=== PATIENT | male | born 1960 | race Caucasian/White ===

== ENCOUNTER 2016-10-22 05:39 | Outpatient (CLI) | payer OTHER ==
[~2016-10-22] VITALS: Ht 170.2 cm; Wt 115.7 kg
[~2016-10-22 05:39] MED LIST: OXYC-12 PO
[2016-11-05] MEDS ORDERED: HYDR-3812 PO (11:56)
== END 2016-10-22 16:28 ==
LOC: PREOP 05:39
PROVIDERS: ATTEND Surgery
DX: Z01.818 Encounter for other preprocedural examination (principal); Z12.11 Encounter for screening for malignant neoplasm of colon; Z83.71 Family history of colonic polyps

== ENCOUNTER 2016-10-26 10:54 | Day surgery (SDC) | payer OTHER ==
[~2016-10-26] VITALS: Ht 170.2 cm; Wt 115.7 kg
[2016-10-26] MEDS ORDERED: NS IV 500 ML 500 ML IV STA (11:07)
[2016-10-26] MEDS ORDERED: NS IV 500 ML 500 ML ONE (11:11)
[2016-10-26] MEDS ORDERED: NALOXONE 0.4 MG/ML 1 ML (NARCAN) VIAL IVP PRN (11:15)
[2016-10-26] MEDS ORDERED: FLUMAZENIL (ROMAZICON) 0.1 MG/ML 5 ML VIAL INJ PRN (11:15)
[2016-10-26 11:40] VITALS: BP 138/88
[2016-10-26] MEDS ORDERED: fentaNYL INJECTION 100 MCG/2 ML AMP ONE ×2 (12:34)
[2016-10-26] MEDS ORDERED: MIDAZOLAM 2 MG/2 ML (VERSED) VIAL ONE ×5 (12:34→12:50)
--- NOTE | 2016-10-26 12:38 | Conscious Sedation/ASA ---
Conscious Sedation Pre-Proced Time Reviewed: 12:37 ASA Class: 2 Airway Mallampati Classification: (lower [place] appropriate class) I. II. III, IV Lungs Heart ASA score ASA 1: a normal healthy patient ASA 2: a patient with a mild systemic disease (mid diabetes, controlled hypertension, obesity ASA 3: a patient with a severe systemic disease that limits activity (angina , COPD, prior Myocardial infarction) ASA 4: a patient with an incapacitating disease that is a constant threat to life (CHF, renal failure) ASA 5: a moribund patient not expected to survive 24 hrs. (ruptured aneurysm) ASA 6: a declared brain patient whose organs are being harvested. For emergent operations, add the letter E after the classification Grade 1 Sedation Plan: Discussed options with patient/fam Note The patient is an appropriate candidate to undergo the planned procedure, sedation, and anesthesia. The patient immediately re-assessed prior to indication. SONIA FUCHS MD Oct 26, 2016 12:38 pm
[2016-10-26] MEDS: fentaNYL INJECTION 100 MCG/2 ML AMP IVP PRN ×2 (12:47→12:49)
[2016-10-26] MEDS: MIDAZOLAM 2 MG/2 ML (VERSED) VIAL IVP PRN ×3 (12:48→12:52)
--- NOTE | 2016-10-26 13:06 | Endoscopy Procedure Report ---
Endoscopy Report Date: Oct 26, 2016 Preoperative Diagnosis: personal and family history of polyps Study Performed: Colonoscopy Procedure Instrument: Colonoscope Endo Procedure/Findings Findings 1.: Polyp, Diverticulosis Copy Copies To 1: MEAGAN WEN MD, XAVIER M MD Oct 26, 2016 1:05 pm
--- NOTE | 2016-10-26 13:08 | Discharge Inst-Simple/Standard ---
Discharge Inst-Standard Discharge Medications New, Converted or Re-Newed RX: Other Patient Instructions/Follow Up Plan of Care/Instructions/FU: repeat colonoscopy in 2 years Activity as Tolerated: Yes Discharge Diet: No Restrictions SONIA FUCHS MD Oct 26, 2016 1:08 pm
[2016-10-26 13:35] VITALS: BP 133/76
[2016-10-26 14:05] VITALS: BP 137/89
[2016-10-26 14:15] VITALS: BP 137/89
--- NOTE | 2016-10-27 09:00 | PROCEDURE REPORT ---
PROCEDURE PHYSICIAN: SONIA FUCHS DATE OF PROCEDURE: 10/26/2016 PROCEDURE: 1. Screening colonoscopy. 2. Snare polypectomy. SURGEON: Dr. Fuchs. INDICATION FOR THE PROCEDURE: This gentleman came in for screening colonoscopy. He has a personal and family history of polyps. Informed consent was obtained after reviewing the procedure in detail. DESCRIPTION OF THE PROCEDURE: He was placed in left lateral decubitus position and his vital signs were monitored. Conscious sedation was achieved using versed and fentanyl. Digital rectal examination was unremarkable. The colonoscope was then introduced into the rectum and advanced all the way up to the cecum. The scope was then withdrawn slowly and the mucosa examined in a systematic fashion. FINDINGS: 1. Sigmoid diverticulosis. 2. 3 mm polyp at the cecum that was snared and retrieved. He tolerated the procedure well and was taken back to the nursing area in a stable condition. IMPRESSION: 1. Previous history of polyps. 2. Cecal polyp, excised. 3. Recommend repeating in 2 years. Job ID: [id number] Dictated Date: 10/26/2016 13:05:30 Copyman Date: 10/27/2016 08:53:52 / roman MCFADDEN
[2016-11-05] MEDS ORDERED: HYDR-3812 PO (11:56)
== END 2016-10-26 14:15 | disposition home or self-care (01) ==
LOC: ENDO 10:54
PROVIDERS: ATTEND Surgery
DX: Z12.11 Encounter for screening for malignant neoplasm of colon (principal); K63.5 Polyp of colon; K57.90 Diverticulosis of intestine, part unspecified, without perforation or abscess without bleeding; Z83.71 Family history of colonic polyps
CPT/HCPCS: 88305

== ENCOUNTER → 2016-10-29 | Outpatient (CLI) | payer OTHER ==
[~2016-10-29] MED LIST changes: +BARIUM SUSPENSION 2.1% (VANILLA SILQ) 450 ML PO ONE; +CATHETER FLUSH 10 ML SYR IV PRN; +HYDR-3812 PO; +IOHEXOL 350 MG/ML 100 ML (OMNIPAQUE 350) VIAL IV ONE; +NS 100 ML (IVPB) BAG IV ONE
--- NOTE | 2016-10-29 13:54 | Diagnostic Imaging Report ---
PROCEDURE: CT abdomen and pelvis with contrast. TECHNIQUE: Multiple contiguous axial images were obtained through the abdomen and pelvis after administration of intravenous contrast. INDICATION: Left lower quadrant pain. 100 mL of Omnipaque 350 is administered intravenously. COMPARISON: 11/21/13. FINDINGS: The lung bases demonstrate minimal atelectasis. The liver, the gallbladder, the spleen, the adrenals, and the pancreas appear unremarkable. The kidneys have symmetric enhancement and contrast excretion. There is no bowel obstruction. The appendix is normal. Scattered few diverticula are seen in the sigmoid colon and distal descending colon with no diverticulitis. There is evidence of prior ventral hernia repair with a mesh. There is mild diastasis of the recti. No evidence of hernia recurrence. There is, however, a small fat-containing left spigelian hernia with 1 cm size of the defect. This is located 10 cm to the left of the midline, and about 7 cm below the umbilicus level. There is a prominent amount of fat density seen in the left inguinal canal which could be related to some herniating fat or lipomatosis in the left inguinal canal. Correlate clinically. Nonspecific ossifications are seen in the prostate with no significant enlargement. The osseous structures demonstrate mild degenerative changes in the lumbar spine and SI joints. IMPRESSION: 1. Small fat-containing left spigelian hernia at 7 cm below the umbilicus and 10 cm to the left of the midline. 2. Prominent amount of fat in the left inguinal canal may relate to lipomatosis, or less likely a small fat-containing indirect left inguinal hernia. 3. Status post ventral hernia repair with a mesh, without recurrence. Dictated by: Dictated on workstation # [id number]
== END ==
LOC: RAD 12:15
PROVIDERS: ATTEND Surgery
DX: K43.9 Ventral hernia without obstruction or gangrene (principal)
CPT/HCPCS: 74177

== ENCOUNTER 2016-11-03 08:39 | Outpatient (CLI) | payer OTHER ==
[~2016-11-03] VITALS: Ht 170.2 cm; Wt 115.7 kg
[~2016-11-03 08:39] MED LIST changes: -BARIUM SUSPENSION 2.1% (VANILLA SILQ) 450 ML PO ONE; -CATHETER FLUSH 10 ML SYR IV PRN; -HYDR-3812 PO; -IOHEXOL 350 MG/ML 100 ML (OMNIPAQUE 350) VIAL IV ONE; -NS 100 ML (IVPB) BAG IV ONE
== END 2016-11-03 09:01 ==
LOC: PREOP 08:39
PROVIDERS: ATTEND Surgery
DX: Z01.818 Encounter for other preprocedural examination (principal); K43.9 Ventral hernia without obstruction or gangrene

== ENCOUNTER 2016-11-04 10:18 | Day surgery (SDC) | payer OTHER ==
[2016-11-03] MEDS: morphine INJ 10 MG/ML 1ML (SYR OR VIAL) IVP PRN (15:30)
[~2016-11-04] VITALS: Ht 170.2 cm; Wt 115.7 kg
[2016-11-04] MEDS ORDERED: ceFAZolin 2 GM/50 ML NS 50 ML IV ONE (10:30)
[2016-11-04] MEDS ORDERED: ROCURONIUM 50 MG/5 ML (ZEMURON) VIAL IV ONE ×3 (10:48→14:38)
[2016-11-04] MEDS ORDERED: LIDOCAINE PF 2% 10 ML (XYLOCAINE) AMP ONE (10:48)
[2016-11-04] MEDS ORDERED: DEXAMETHASONE PF 10 MG/ML (DECADRON) VIAL ONE (10:48)
[2016-11-04] MEDS ORDERED: MIDAZOLAM 2 MG/2 ML (VERSED) VIAL ONE (10:48)
[2016-11-04] MEDS ORDERED: fentaNYL INJECTION 250 MCG/5 ML AMP ONE (10:48)
[2016-11-04] MEDS ORDERED: SEVOFLURANE (ULTANE) 15 ML INHAL SOLN ONE ×5 (10:48→14:38)
[2016-11-04] MEDS ORDERED: ONDANSETRON 4 MG/2 ML (SDV) Z0FRAN ONE (10:48)
[2016-11-04] MEDS ORDERED: proPOfol 200 MG/20 ML (DIPRIVAN) VIAL IV ONE (10:48)
[2016-11-04] MEDS: LACTATED RINGERS 1,000 ML IV PRN ×2 (10:58→13:11)
[2016-11-04 11:00] VITALS: BP 147/95
[2016-11-04] MEDS ORDERED: BUP/EPI 0.25% 1:200,000 (MARCAINE) 30 ML VIAL ONE (11:00)
[2016-11-04] MEDS ORDERED: CATHETER FLUSH 10 ML SYR IV PRN (11:00)
[2016-11-04] MEDS ORDERED: ceFAZolin 2 GM/NS 50 ML IV ONE (11:00)
--- NOTE | 2016-11-04 12:18 | Progress Note-Pre Operative ---
Pre-Operative Progress Note H&P Reviewed The H&P was reviewed, patient examined and no changes noted. Date H&P Reviewed: Nov 04, 2016 Time H&P Reviewed: 12:18 Pre-Operative Diagnosis: LEFT sPIGELIAN HERNIA SONIA FUCHS MD Nov 04, 2016 12:18 pm
[2016-11-04] MEDS ORDERED: LACTATED RINGERS 0 ML IV ONE (13:10)
[2016-11-04] MEDS ORDERED: morphine INJ 10 MG/ML 1ML (SYR OR VIAL) ONE (13:26)
[2016-11-04] MEDS ORDERED: GLYCOPYRROLATE 0.2 MG/ML (ROBINUL) 2 ML VIAL ONE ×2 (14:37→14:54)
[2016-11-04] MEDS ORDERED: NEOSTIGMINE (BLOXIVERZ ) 1 MG/1ML 10 ML VIAL ONE (14:37)
[2016-11-04] MEDS ORDERED: LACTATED RINGERS 1,000 ML IV ONE ×2 (14:38→14:54)
[2016-11-04] MEDS ORDERED: ONDANSETRON 4 MG/2 ML (SDV) Z0FRAN IVP PRN (15:00)
[2016-11-04] MEDS ORDERED: MEPERIDINE (DEMEROL) INJ 50 MG/ML IVP PRN (15:00)
[2016-11-04] MEDS: morphine INJ 10 MG/ML 1ML (SYR OR VIAL) IVP PRN ×2 (15:25→15:30)
--- NOTE | 2016-11-04 15:54 | Progress Note-Post Operative ---
Post-Operative Progess Note Surgeon (s)/Starch Dumper (s) Surgeon SONIA FUCHS MD Starch Dumper: Silva Griffin Pre-Operative Diagnosis LEFT sPIGELIAN HERNIA Post-Operative Diagnosis Same Post-Op Procedure Note Date of Procedure: Nov 04, 2016 Name of Procedure Performed: Robotic assisted repair with random reclosure Description of the Procedure: See operative report Findings of the Procedure See operative report Anesthesia Type Gen. Estimated blood loss (mL): 50 mL Specimen(s) collected/removed None SONIA FUCHS MD Nov 04, 2016 3:54 pm
[2016-11-04] MEDS ORDERED: PREGABALIN 75 MG (LYRICA) CAP PO ONE (16:00)
[2016-11-04] MEDS ORDERED: ACETAMINOPHEN 500 MG TAB (TYLENOL) PO ONE (16:00)
[2016-11-04] MEDS ORDERED: oxyCODONE ER 10 MG (OxyCONTIN CR) TAB PO ONE (16:00)
[2016-11-04] MEDS ORDERED: CELECOXIB 100 MG (CeleBREX) CAP PO ONE (16:00)
[2016-11-04 16:05] VITALS: BP 157/95
--- NOTE | 2016-11-04 16:51 | OPERATIVE REPORT ---
DATE OF SERVICE: 11/04/2016 DATE OF PROCEDURE: 11/04/2016 PREOPERATIVE DIAGNOSIS: Left spigelian hernia. POSTOPERATIVE DIAGNOSIS: Left spigelian hernia. OPERATION PERFORMED: Robotic assisted repair of left Spigelian hernia without mesh. SURGEON: Sonia Fuchs MD ANESTHESIA: General anesthesia. ESTIMATED BLOOD LOSS: 50 mL. FLUIDS: 2 liters of crystalloid. TYPE OF WOUND: Type I (plain wound). INDICATION FOR PROCEDURE: This gentleman presented with a symptomatic left Spigelian hernia. He was offered minimally invasive repair with robotic assistance. Informed consent was obtained after reviewing the procedure in detail. DESCRIPTION OF PROCEDURE: He was placed supine on the operating room table and general anesthesia induced using an endotracheal tube. Two grams of Ancef were administered intravenously as prophylaxis against a wound infection. Sequential compression devices were placed around his legs to minimize the risk of venous thrombus. Abdomen was prepared and draped in the usual sterile manner. The left side of his body was lifted up on a roll, to facilitate triangulation of the robotic system. Pneumoperitoneum was established using a Veress needle introduced over the right subcostal margin, along the mid axillary line. Intraabdominal pressure was initially maintained at 15 mmHg. Subsequently, it was increased to 17 mmHg to maintain adequate pneumoperitoneum. A 12 mm trocar was placed and anatomy visualized using the 30 degree high definition laparoscope associated with Yeahka system. Omentum was adherent to the undersurface of the previous mesh, that had been used to repair a ventral hernia along his umbilicus. Under direct view, I placed another 12 mm trocar in the right side of the abdomen, along the mid axillary vein, followed by an 8 mm trocar over the right lower quadrant. The robotic system was then docked in place. Omentum was taken down by blunt dissection. Bleeding from the omentum was controlled using bipolar cautery. At this point, there was some concern about an iatrogenic injury in the right upper quadrant. Therefore, an addition 8 mm trocar was placed over the left side of the abdomen and I examined the right upper quadrant very carefully. Blood was suctioned out and there was no injury identified. Therefore, we proceeded to repair the hernia. Omentum was trapped within the hernia over the left semiarcuate line. It was reduced revealing a 1 cm defect. I felt reasonable to close the defect primarily without any mesh reinforcement. This was achieved using a 0 V-Loc suture with robotic assistance. Hemostasis was satisfactory and the operation concluded. Incisions were closed using 4-0 Vicryl in a subcuticular fashion. Then 0.25% Marcaine with epinephrine was infiltrate along the incisions, both preemptively and at the conclusion of the operation. He tolerated the procedure well, was extubated in the operating room and taken to the recovery room in stable condition. Gratz, sponges and instruments were correct at the end of the operation. Job ID: [id number] DocumentID: [id number] Dictated Date: 11/04/2016 15:45:38 Appian Developer Date: 11/04/2016 16:50:49 Dictated By: SONIA FUCHS MD [facility]
[2016-11-04] MEDS: morphine INJ 4 MG/ML 1 ML (VIAL/SYRINGE) IV PRN ×2 (19:13→21:50)
[2016-11-04 19:50] VITALS: BP 168/81
[2016-11-04] MEDS ORDERED: ACETAMINOPHEN 325 MG TABLET/CAPLET (TYLENOL) PO PRN (22:15)
[2016-11-04 22:30] VITALS: BP 150/89
[2016-11-05] VITALS: BP 130/86
[2016-11-05] MEDS: morphine INJ 4 MG/ML 1 ML (VIAL/SYRINGE) IV PRN ×2 (02:41→08:17)
[2016-11-05 04:08] VITALS: BP 125/77
[2016-11-05 07:35] VITALS: BP 145/87
--- NOTE | 2016-11-05 09:36 | Anesthesia-General Post-Op ---
General Patient Condition Mental Status/LOC: Same as Preop Cardiovascular: Satisfactory Nausea/Vomiting: Absent Respiratory: Satisfactory Pain: Controlled Complications: Absent Post Op Complications Complications None Follow Up Care/Instructions Patient Instructions None needed. Anesthesia/Patient Condition Patient Condition Patient is doing well, no complaints, stable vital signs, no apparent adverse anesthesia problems. No complications reported per nursing. JEFF MOTTA CRNA Nov 05, 2016 09:36
[2016-11-05] MEDS ORDERED: HYDR-3812 PO (11:56)
--- NOTE | 2016-11-05 11:57 | Discharge Inst-Simple/Standard ---
Discharge Inst-Standard Discharge Medications New, Converted or Re-Newed RX: RX on Chart Patient Instructions/Follow Up Plan of Care/Instructions/FU: Ice pack to the right abdominal incision.F/U in 4 weeks Activity as Tolerated: No Goal: No lifting over 20 lb Discharge Diet: No Restrictions SONIA FUCHS MD Nov 05, 2016 11:57 am
[2016-11-05 12:00] VITALS: BP 141/88
--- NOTE | 2016-11-05 13:11 | Progress Note-Standard ---
Standard Progress Note Progress Notes/Assess & Plan Progress/Assessment & Plan 11/05/16: Doing well. Ecchymosis around the right incision. Reassured. Could be discharged home. Final Diagnosis Left spigelian hernia SONIA FUCHS MD Nov 05, 2016 1:11 pm
[2016-11-05 13:36] VITALS: BP 141/88
== END 2016-11-05 13:46 | disposition home or self-care (01) ==
LOC: SDC 10:18 → 4TH 16:10 → SDC 11-05 13:46
PROVIDERS: ATTEND Surgery
DX: K43.9 Ventral hernia without obstruction or gangrene (principal); Z11.2 Encounter for screening for other bacterial diseases
CPT/HCPCS: 87081; 94664

== ENCOUNTER 2021-10-09 05:37 | Outpatient (CLI) | payer BC ==
[~2021-10-09] VITALS: Ht 170 cm; Wt 118.2 kg
[~2021-10-09 05:37] MED LIST changes: +ACHD5005 PO
== END 2021-10-10 16:07 | disposition home or self-care (01) ==
LOC: PREOP 05:37
PROVIDERS: ATTEND Surgery
DX: Z01.818 Encounter for other preprocedural examination (principal); Z86.010 Personal history of colon polyps

== ENCOUNTER 2021-10-20 08:17 | Day surgery (SDC) | payer BC, OTHER ==
[~2021-10-20] VITALS: Ht 170 cm; Wt 118.0 kg
[2021-10-20 08:40] VITALS: BP 150/89
[2021-10-20] MEDS ORDERED: LACTATED RINGERS 1,000 ML IV ONE (08:40)
--- NOTE | 2021-10-20 08:45 | Progress Note-Pre Operative ---
Pre-Operative Progress Note H&P Reviewed The H&P was reviewed, patient examined and no changes noted. Time Seen by Provider: 08:39 Date H&P Reviewed: Oct 20, 2021 Time H&P Reviewed: 08:39 Pre-Operative Diagnosis: Hx of Polyps GLORIA CORREIA DO Oct 20, 2021 08:45
[2021-10-20] MEDS ORDERED: LACTATED RINGERS 1,000 ML IV STA (08:49)
[2021-10-20] MEDS ORDERED: PROPOFOL INJECTION 50 ML IV ONE ×2 (09:05→09:28)
[2021-10-20] MEDS ORDERED: MIDAZOLAM 2 MG/2 ML (VERSED) VIAL ONE (09:05)
[2021-10-20 09:40] VITALS: BP 113/76
[2021-10-20 09:45] VITALS: BP 111/73
--- NOTE | 2021-10-20 09:46 | Progress Note-Post Operative ---
Post-Operative Progess Note Surgeon (s)/Lead Teacher (s) Surgeon GLORIA CORREIA DO Lead Teacher: Higinio Torres, MSIII Pre-Operative Diagnosis Hx of Polyps Post-Operative Diagnosis polyp diverticula int hemorrhoids Procedure & Operative Findings Date of Procedure 10/20/21 Procedure Performed/Findings Colonoscopy with Snare polypectomy PROCEDURE NOTE: After informed consent was obtained, the patient was brought to the endoscopy suite, placed in bed in left lateral decubitus position. He was administered IV sedation by the CHIEF OF ANESTHESIOLOGY who then monitored his vitals the entire time, heart rate, blood pressure and pulse ox and the scope was inserted, on the way in in the Ascending colon found a polyp and revmoved it with snare polypectomy. Pushed all the way to about 150 cm and into the cecum, took a picture of appendiceal orifice and then slowly withdrew the scope insufflating to look circumferentially at the alas starting in the cecum, up the ascending colon to the hepatic flexure, then down the transverse colon, splenic flexure, into the descending colon down and the sigmoid and then into the rectal vault and retroflexed the scope. Took picture of the internal hemorrhoids. Had also seen diverticula mainly in the left side of the colon but also some on the right. The patient tolerated the procedure. He was recovered in endoscopy suite. Anesthesia Type IV sedation by CHIEF OF ANESTHESIOLOGY Estimated Blood Loss Estimated blood loss (mL): scant Specimens/Packing Specimens Removed asc colon polyp GLORIA CORREIA DO Oct 20, 2021 09:46
--- NOTE | 2021-10-20 09:47 | Endoscopy Discharge Instruct ---
Endo Procedure/Findings Findings 1.: Polyp 2.: Diverticulosis 3.: Internal Hemorrhoids Discharge Instructions - Activity: You might feel a little sleepy until tomorrow. This is due to the medicine you received to relax you. Until tomorrow, you should: NOT drive a car, operate machinery or power tools. NOT drink any alcoholic beverages. NOT make any important decisions or sign importortant papers. Do not return to work until tomorrow, unless otherwise instructed. Resume previous activities tomorrow. Diet: Start by taking liquids. If you tolerate liquids, advance to solid food. 1.: Colonscopy in 5 years Notify Physician - If you experience excessive bleeding, unusual abdominal pain, fever, or chest pain, contact your doctor immediately. GLORIA CORREIA DO Oct 20, 2021 09:47
[2021-10-20 09:50] VITALS: BP 109/74
[2021-10-20 10:25] VITALS: BP 132/88
--- NOTE | 2021-10-20 10:49 | Anesthesia-General Post-Op ---
MAC Patient Condition Mental Status/LOC: Same as Preop Cardiovascular: Satisfactory Nausea/Vomiting: Absent Respiratory: Satisfactory Pain: Controlled Complications: Absent Post Op Complications Complications None Follow Up Care/Instructions Patient Instructions None needed. Anesthesiology Discharge Order Discharge Order Patient is doing well, no complaints, stable vital signs, no apparent adverse anesthesia problems. No complications reported per nursing. LILA MARTINEZ CRNA Oct 20, 2021 10:49
== END 2021-10-20 10:25 | disposition home or self-care (01) ==
LOC: ENDO 08:17
PROVIDERS: ATTEND Surgery
DX: D12.2 Benign neoplasm of ascending colon (principal); K57.30 Diverticulosis of large intestine without perforation or abscess without bleeding; K64.8 Other hemorrhoids; E66.01 Morbid (severe) obesity due to excess calories; Z68.41 Body mass index [BMI] 40.0-44.9, adult